=== PATIENT | male | born 1970 | race Caucasian/White ===

== ENCOUNTER 2016-08-06 17:38 | Emergency (ER) | payer OTHER ==
[2016-08-06 17:55] VITALS: BP 129/79
[2016-08-06] MEDS ORDERED: HYDROCODONE/ACETAMINOPHEN 5-325 MG 6 TAB/DSPK PO PRN (19:59)
[2016-08-06] MEDS ORDERED: IBUPROFEN 800 MG TABLET PO ONE (19:59)
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
== END 2016-08-06 20:15 | disposition home or self-care (01) ==
LOC: ER 17:38
DX: S16.1XXA Strain of muscle, fascia and tendon at neck level, initial encounter (principal); S29.012A Strain of muscle and tendon of back wall of thorax, initial encounter; M54.2 Cervicalgia; M54.89 Other dorsalgia; V43.52XA Car driver injured in collision with other type car in traffic accident, initial encounter
CPT/HCPCS: 99283

== ENCOUNTER 2017-09-12 00:28 | Emergency (ER) | payer BC, OTHER ==
[2017-09-12] MEDS ORDERED: LIDOCAINE 5% (700 MG) TRANSDERMAL ADH..PATCH TP ONE (01:42)
[2017-09-12] MEDS ORDERED: IBUPROFEN 600 MG TABLET PO ONE (01:49)
[2017-09-12] MEDS ORDERED: MORPHINE SULFATE IR 15 MG TABLET PO ONE (01:49)
[2017-09-12] MEDS ORDERED: ACETAMINOPHEN 325 MG TABLET PO ONE (01:49)
--- NOTE | 2017-09-12 02:09 | ER Document Report ---
ED General - General Chief Complaint: Shoulder Pain Stated Complaint: RIGHT ARM PAIN Time Seen by Provider: 09/12/17 01:21 Notes: Patient is a 47 year old male without chronic medical problems who presents with 3 days of progressively worsening right shoulder pain. He states the pain started after he was playing racquetball and has gotten progressively worse since that time. He is describes as a severe, throbbing, aching pain to the right shoulder with radiation of the pain down into his right forearm and hand with associated paresthesias of the forearm and hand. He denies any focal weakness or loss of sensation. He has tried tramadol and ibuprofen with moderate improvement of the pain. Any attempt at moving the shoulder be 45 of abduction significantly increases the pain. He denies any direct trauma to the area. He denies any chest pain, shortness of breath, nausea, vomiting or diaphoresis. TRAVEL OUTSIDE OF THE [place] IN LAST 30 DAYS: No - Related Data Allergies/Adverse Reactions: No Known Allergies Allergy (Unverified 08/06/16 17:53) Past Medical History - General Information source: Patient - Social History Smoking Status: Never Smoker Frequency of alcohol use: None Drug Abuse: None Lives with: Family Family History: Arthritis, CAD - father, CVA, DM, Hyperlipidemia, Hypertension Renal/ Medical History: Denies: Hx Peritoneal Dialysis Musculoskeltal Medical History: Reports Hx Arthritis, Reports Hx Musculoskeletal Deformity, Reports Hx Musculoskeletal Trauma Past Surgical History: Reports: Hx Orthopedic Surgery - carpal tunnel, Hx Umbilical Hernia - Immunizations Immunizations up to date: No Hx Diphtheria, Pertussis, Tetanus Vaccination: No Review of Systems - Review of Systems Notes: Constitutional: Negative for fever. HENT: Negative for sore throat. Eyes: Negative for visual changes. Cardiovascular: Negative for chest pain. Respiratory: Negative for shortness of breath. Gastrointestinal: Negative for abdominal pain, vomiting or diarrhea. Genitourinary: Negative for dysuria. Musculoskeletal: Positive for right shoulder pain Skin: Negative for rash. Neurological: Negative for headaches, weakness or numbness. 10 point ROS negative except as marked above and in HPI. Physical Exam - Vital signs Vitals: Temp Pulse Resp BP Pulse Ox 98.4 F 73 18 122/78 98 09/12/17 02:22 09/12/17 02:22 09/12/17 02:22 09/12/17 02:22 09/12/17 02:22 Interpretation: Normal Notes: PHYSICAL EXAMINATION: GENERAL: Appears to be moderately uncomfortable but no acute distress HEAD: Atraumatic, normocephalic. EYES: Pupils equal round and reactive to light, extraocular movements intact, sclera anicteric, conjunctiva are normal. ENT: nares patent, oropharynx clear without exudates. Moist mucous membranes. NECK: Normal range of motion, supple without lymphadenopathy LUNGS: Breath sounds clear to auscultation bilaterally and equal. No wheezes rales or rhonchi. HEART: Regular rate and rhythm without murmurs ABDOMEN: Soft, nontender, normoactive bowel sounds. No guarding, no rebound. No masses appreciated. EXTREMITIES: The patient is unable to abduct his right shoulder about 45. NEUROLOGICAL: No focal neurological deficits. Moves all extremities spontaneously and on command. PSYCH: Normal mood, normal affect. SKIN: Warm, Dry, normal turgor, no rashes or lesions noted. Course - Re-evaluation Re-evalutation: 09/12/17 02:31 Patient presents with an acute right shoulder pain likely secondary to a partial ligamentous tear with an associated inflammatory process of the joint and irritation of the underlying nerves. RMU motor and sensory distribution are fully intact. Right shoulder x-ray without any evidence of acute fracture or dislocation. Patient's clinical history is not all consistent with ACS, EKG unremarkable. The patient does also have associated muscle spasm of the right trapezius, right periscapular muscles. He has been started on anti- inflammatories, small amount of morphine as needed for pain uncontrolled by Tylenol and ibuprofen. I have recommended outpatient orthopedic follow-up if he is not having improvement of his symptoms in the next several weeks. At this time will discharge with return precautions and follow-up recommendations. Verbal discharge instructions given a the bedside and opportunity for questions given. Medication warnings reviewed. Patient is in agreement with this plan and has verbalized understanding of return precautions and the need for primary care follow-up in the next 24-72 hours. - Vital Signs Vital signs: Temp Pulse Resp BP Pulse Ox 98.4 F 73 18 122/78 98 09/12/17 02:22 09/12/17 02:22 09/12/17 02:22 09/12/17 02:22 09/12/17 02:22 - Diagnostic Test Radiology reviewed: Image reviewed, Reports reviewed Radiology results interpreted by me: 09/12/17 02:32 Right shoulder x-ray: No acute fracture or dislocation - EKG Interpretation by Me Additional EKG results interpreted by me: 09/12/17 02:32 Sinus rhythm. Rate 69. No ST elevations or depressions. QTC is 390. Discharge - Discharge Clinical Impression: Trapezius muscle spasm, Paresthesia of right upper extremity Right shoulder pain Qualifiers: Chronicity: acute Qualified Code(s): M25.511 - Pain in right shoulder Condition: Good Disposition: HOME, SELF-CARE Additional Instructions: Your x-ray does not show any acute fracture today. You likely have a ligamentous strain with associated inflammation of your shoulder joint. For your pain: Take ibuprofen 600 mg and acetaminophen 1000 mg every 6 hours together as needed for pain. If this does not control your pain you may take 15 mg of oral morphine every 4 hours as needed. Please be very careful about using the oral morphine and only use this for severe pain. Continue to apply ice to the area is much your able. Please follow-up with your primary care physician if you do not have improving your symptoms in the next 1-2 weeks. Please return immediately if you develop weakness, numbness, spreading redness from the area, or any other symptoms that are concerning to you. Prescriptions: Morphine Sulfate [Morphine Ir 15 mg Tablet] 15 mg PO Q4HP PRN #12 tablet PRN Reason:
--- NOTE | 2017-09-12 02:28 | RADIOLOGY REPORT (SQ) ---
EXAM DESCRIPTION: Right shoulder, 2 or more views CLINICAL HISTORY: pain, limited rom COMPARISON: None. FINDINGS: 3 views of the right shoulder. No acute fracture or dislocation. Normal osseous mineralization. No acute abnormalities of the visualized right hemithorax. IMPRESSION: No acute fracture or dislocation.
[2017-09-12] MEDS ORDERED: ONDANSETRON ODT 4 MG TAB (6 TAB/ER DISP) PO PRN (02:33)
[2017-09-12 03:12] VITALS: BP 122/81
--- NOTE | 2017-09-12 07:24 | EKG REPORT ---
SEVERITY:- NORMAL ECG - SINUS RHYTHM : Confirmed by: Josie Nogueira MD 12-Sep-2017 07:23:44
== END 2017-09-12 03:05 | disposition home or self-care (01) ==
LOC: ER 00:28
DX: M25.511 Pain in right shoulder (principal); M62.830 Muscle spasm of back; R20.0 Anesthesia of skin; M79.601 Pain in right arm; X50.3XXA Overexertion from repetitive movements, initial encounter; Y93.73 Activity, racquet and hand sports
CPT/HCPCS: 93005; 93010; 99284

== ENCOUNTER 2019-01-26 18:03 | Emergency (ER) | payer SELFPAY ==
[~2019-01-26 18:03] MED LIST: ASPIRIN 81 MG TABLET, CHEWABLE ONE; CLOPIDOGREL BISULFATE 300 MG TABLET ONE; NITROGLYCERIN 0.4 MG/TAB 25 TAB/BOTTLE ONE; TENECTEPLASE INJ 50 MG KIT IV ONE
[2019-01-26] MEDS: NITROGLYCERIN 0.4 MG/TAB 25 TAB/BOTTLE SL PRN ×3 (18:17→18:27)
[2019-01-26] MEDS ORDERED: NITROGLYCERIN/D5W 50 MG/250 ML RTUINJ IV ONE (18:23)
[2019-01-26] MEDS ORDERED: HEPARIN SOD (PORCINE) 1,000 UNIT/ML 10 ML VIAL ONE (18:29)
--- NOTE | 2019-01-26 18:39 | ER Document Report ---
ED Cardiac - General Chief Complaint: Chest Pain Stated Complaint: CHEST PAIN Time Seen by Provider: 01/26/19 18:36 Primary Care Provider: CAYLA NICHOLE MD [Primary Care Provider] - Follow up as needed Notes: Patient is complaining of anterior chest pain that started about an hour ago while he was laying down resting. Patient says he is been having some pressure in the front of his chest for the past few days, but this pain this evening is much more severe. He is nauseated but no other symptoms. No shortness of breath. Patient arrived in the emergency department and initial EKG and triage shows an inferior wall STEMI with some minor reciprocal changes of an AZ in V2. Patient has a history of hypertension but not currently taking any medications. Patient has a history of NIDDM, but not taking any medications either. TRAVEL OUTSIDE OF THE [place] IN LAST 30 DAYS: No - Related Data Allergies/Adverse Reactions: No Known Allergies Allergy (Unverified 08/06/16 17:53) Past Medical History - Social History Smoking Status: Unknown if Ever Smoked Family History: Arthritis, CAD - father, CVA, DM, Hyperlipidemia, Hypertension - Past Medical History Cardiac Medical History: Reports: Hx Hypertension Denies: Hx Coronary Artery Disease Endocrine Medical History: Reports: Hx Diabetes Mellitus Type 2 Musculoskeletal Medical History: Reports Hx Arthritis, Reports Hx Musculoskeletal Deformity, Reports Hx Musculoskeletal Trauma Past Surgical History: Reports: Hx Orthopedic Surgery - carpal tunnel, Hx Umbilical Hernia - Immunizations Immunizations up to date: No Hx Diphtheria, Pertussis, Tetanus Vaccination: No Review of Systems - Review of Systems Notes: REVIEW OF SYSTEMS: CONSTITUTIONAL : Denies fever. EENT: Denies eye, ear, nose or mouth or throat pain or other symptoms. CARDIOVASCULAR: See HPI RESPIRATORY: Denies cough, chest congestion, or shortness of breath. GASTROINTESTINAL: Denies abdominal pain or vomiting, or diarrhea. Some nausea. GENITOURINARY: Denies difficulty or painful urinating, urinary frequency, blood in urine. MUSCULOSKELETAL: Denies back or neck pain. Denies joint pain or swelling. SKIN: Denies rash or skin lesions. NEUROLOGICAL: Denies LOC or altered mental status. Denies headache. Denies sensory loss or motor deficits. ALL OTHER SYSTEMS REVIEWED AND NEGATIVE. Physical Exam - Vital signs Vitals: Resp Pulse Ox 12 100 01/26/19 18:20 01/26/19 18:20 Interpretation: Normal, Hypertensive - Mild Notes: PHYSICAL EXAMINATION: GENERAL: Well-appearing, in no acute distress. Anxious ambulatory. HEAD: Atraumatic, normocephalic. EYES: Pupils equal round and reactive to light, extraocular movements intact. ENT: oropharynx clear without exudates. Moist mucous membranes. NECK: Normal range of motion, supple. LUNGS: Breath sounds clear and equal bilaterally. HEART: Regular rate and rhythm without murmurs. ABDOMEN: Soft, nontender. No guarding or rebound. No masses. BACK: No tenderness throughout entire back. EXTREMITIES: Normal range of motion without pain. Negative Homans bilaterally. NEUROLOGICAL: Normal speech, normal gait SKIN: Warm, dry, no rashes. Course - Re-evaluation Re-evalutation: 01/26/19 18:58 Patient's initial EKG showed a STEMI of the inferior heart. He was placed in a bed in trauma bay and IV established. Contacted [facility], , who accepted the patient in transfer. Patient received aspirin 325 p.o., Plavix 300 mg p.o., and heparin bolus. After that, patient received TPA per protocol. Patient had nitroglycerin sublingually and drip ordered. Patient will be transported to [facility] by helicopter. There was mechanical error with the first helicopter and a second, back-up vehicle is being launched. - Vital Signs Vital signs: Temp Pulse Resp BP Pulse Ox 97.8 F 82 15 159/94 H 100 01/26/19 19:11 01/26/19 19:11 01/26/19 19:17 01/26/19 19:17 01/26/19 19:17 - Laboratory Result Diagrams: 01/26/19 18:18 01/26/19 18:18 Laboratory results interpreted by me: 01/26/19 01/26/19 18:18 18:18 RBC 5.84 H Sodium 136.6 L Glucose 383 H - Diagnostic Test Radiology results interpreted by me: 01/27/19 14:28 CXR normal - EKG Interpretation by Me EKG shows normal: Sinus rhythm Rate: Normal Rhythm: NSR When compared to previous EKG there are: Previous EKG unavailable Additional EKG results interpreted by me: 01/27/19 14:29 EKG shows inferior STEMI Critical Care Note - Critical Care Note Total time excluding time spent on procedures (mins): 40 Discharge - Discharge Clinical Impression: Acute AZ, inferior wall Condition: Serious Disposition: [facility] Referrals: CAYLA NICHOLE MD [Primary Care Provider] - Follow up as needed
--- NOTE | 2019-01-26 18:44 | RADIOLOGY REPORT (SQ) ---
EXAM DESCRIPTION: CHEST SINGLE VIEW COMPLETED DATE/TIME: 01/26/2019 6:32 pm REASON FOR STUDY: TROUBLE BREATHING COMPARISON: 03/16/2016 EXAM PARAMETERS: NUMBER OF VIEWS: One view. TECHNIQUE: Single frontal radiographic view of the chest acquired. RADIATION DOSE: NA LIMITATIONS: None. FINDINGS: LUNGS AND PLEURA: No opacities, masses or pneumothorax. No pleural effusion. MEDIASTINUM AND HILAR STRUCTURES: No masses. Contour normal. HEART AND VASCULAR STRUCTURES: Heart normal in size. Normal vasculature. BONES: No acute findings. HARDWARE: None in the chest. OTHER: No other significant finding. IMPRESSION: NO ACUTE RADIOGRAPHIC FINDING IN THE CHEST. TECHNICAL DOCUMENTATION: JOB ID: [id number]- All Rights Reserved Reading location - IP/workstation name: [email or web address]
[2019-01-26] MEDS ORDERED: MORPHINE SULFATE 10 MG/ML INJ IV ONE ×2 (18:51)
[2019-01-26] MEDS ORDERED: ONDANSETRON HCL INJ/PF 4 MG/2 ML SDV IV ONE ×2 (18:52)
[2019-01-26] MEDS ORDERED: MORPHINE SULFATE 10 MG/ML INJ ONE (18:52)
[2019-01-26] MEDS ORDERED: HEPARIN SOD (PORCINE) 1,000 UNIT/ML 10 ML VIAL IV ONE (19:00)
[2019-01-26] MEDS ORDERED: ASPIRIN 81 MG TABLET, CHEWABLE PO ONE (19:01)
[2019-01-26] MEDS ORDERED: NORMAL SALINE 1000 ML 1,000 ML IV ONE (19:02)
[2019-01-26] MEDS ORDERED: TENECTEPLASE INJ 50 MG KIT IV ONE (19:03)
[2019-01-26] MEDS ORDERED: NITROGLYCERIN/D5W 50 MG/250 ML RTUINJ IV PRN (19:03)
[2019-01-26] MEDS ORDERED: CLOPIDOGREL BISULFATE 75 MG TABLET PO ONE (19:04)
[2019-01-26] MEDS ORDERED: CLOPIDOGREL BISULFATE 300 MG TABLET PO ONE (19:13)
[2019-01-26 19:18] LABS: HEMATOCRIT 47.6 % (37.9-51.0); HEMOGLOBIN 16.2 g/dL (13.5-17.0); MEAN CORPUSCULAR HEMOGLOBIN 27.7 pg (27.0-33.4); MEAN CORPUSCULAR VOLUME 82 fl (80-97); PLATELET COUNT 261 10^3/uL (150-450); RED BLOOD COUNT 5.84 10^6/uL (4.35-5.55); WHITE BLOOD COUNT 10.1 10^3/uL (4.0-10.5)
[2019-01-26 19:20] LABS: INTERNATIONAL RATION (INR) 0.88; PROTHROMBIN TIME 11.9 SEC (11.4-15.4)
[2019-01-26 19:21] VITALS: BP 159/94
[2019-01-26 19:21] LABS: PARTIAL THROMBOPLASTIN TIME 25.1 SEC (23.5-35.8)
[2019-01-26 19:33] LABS: ANION GAP 12 (5-19); BLOOD UREA NITROGEN 16 mg/dL (7-20); CALCIUM 9.7 mg/dL (8.4-10.2); CARBON DIOXIDE 25 mmol/L (22-30); CHLORIDE 100 mmol/L (98-107); CREATINE KINASE 140 U/L (55-170); GLUCOSE 383 mg/dL (75-110); POTASSIUM 3.9 mmol/L (3.6-5.0)
[2019-01-26 19:51] LABS: CREATINE KINASE MB 2.12 ng/mL (<4.55)
[2019-01-26 19:56] LABS: TROPONIN I < 0.012 ng/mL
--- NOTE | 2019-01-28 00:29 | EKG REPORT ---
SEVERITY:- ABNORMAL ECG - SINUS RHYTHM INFERIOR INJURY, PROBABLE EARLY ACUTE INFARCT : Confirmed by: Suzanne Blas 28-Jan-2019 00:28:26
--- NOTE | 2019-01-28 00:29 | EKG REPORT ---
SEVERITY:- ABNORMAL ECG - SINUS RHYTHM ATRIAL PREMATURE COMPLEX INFERIOR INJURY, PROBABLE EARLY ACUTE INFARCT CONSIDER ANTEROSEPTAL INFARCT : Confirmed by: Suzanne Blas 28-Jan-2019 00:28:37
--- NOTE | 2019-01-29 16:09 | EKG REPORT ---
SEVERITY:- ABNORMAL ECG - ATRIAL FIBRILLATION, V-RATE 59-79 INFERIOR INJURY, PROBABLE EARLY ACUTE INFARCT : Confirmed on behalf of: Suzanne Blas 29-Jan-2019 16:08:47
== END 2019-01-26 19:23 | disposition short-term general hospital (02) ==
LOC: ER 18:03
DX: I21.19 ST elevation (STEMI) myocardial infarction involving other coronary artery of inferior wall (principal); I10 Essential (primary) hypertension; E11.9 Type 2 diabetes mellitus without complications; R07.89 Other chest pain; R11.0 Nausea; Z82.49 Family history of ischemic heart disease and other diseases of the circulatory system
CPT/HCPCS: 93005 ×2; 99291; 96375; 96365; 36415; 82553; 82550; 85027; 85610; 85730; 80048; 84484; 71045; 93010 ×2; J3101; J3490 ×2; J1644; J2270; J2405; J7030

== ENCOUNTER 2019-09-14 04:32 | Emergency (ER) | payer SELFPAY ==
[2019-09-14 05:10] LABS: ABSOLUTE BASOPHILS # (AUTO) 0.1 10^3/uL (0.0-0.2); ABSOLUTE EOSINOPHILS # (AUTO) 0.4 10^3/uL (0.0-0.6); ABSOLUTE LYMPHOCYTES (AUTO) 2.2 10^3/uL (0.5-4.7); ABSOLUTE MONOCYTES (AUTO) 1.2 10^3/uL (0.1-1.4); ABSOLUTE NEUT (AUTO) 7.4 10^3/uL (1.7-8.2); BASOPHILS % (AUTO) 0.8 % (0-2); EOSINOPHILS % (AUTO) 3.2 % (0-6); HEMATOCRIT 44.7 % (37.9-51.0); HEMOGLOBIN 15.2 g/dL (13.5-17.0); LYMPHOCYTES % (AUTO) 19.7 % (13-45); MEAN CORPUSCULAR HEMOGLOBIN 28.5 pg (27.0-33.4); MEAN CORPUSCULAR VOLUME 84 fl (80-97); MONOCYTES % (AUTO) 10.5 % (3-13); PLATELET COUNT 233 10^3/uL (150-450); RED BLOOD COUNT 5.32 10^6/uL (4.35-5.55); RED CELL DISTRIBUTION WIDTH 12.9 % (11.5-14.0); SEGMENTED NEUTROPHILS % (AUTO) 65.8 % (42-78); TOTAL CELLS COUNTED % (AUTO) 100 %; WHITE BLOOD COUNT 11.2 10^3/uL (4.0-10.5)
[2019-09-14 05:27] LABS: ALBUMIN 4.6 g/dL (3.5-5.0); ALKALINE PHOSPHATASE 51 U/L (38-126); ANION GAP 7 (5-19); ASPARTATE AMINO TRANSFERASE 20 U/L (17-59); BILIRUBIN,TOTAL 0.7 mg/dL (0.2-1.3); BLOOD UREA NITROGEN 21 mg/dL (7-20); CALCIUM 9.6 mg/dL (8.4-10.2); CARBON DIOXIDE 27 mmol/L (22-30); CHLORIDE 103 mmol/L (98-107); GLUCOSE 174 mg/dL (75-110); POTASSIUM 4.7 mmol/L (3.6-5.0); TOTAL PROTEIN 7.3 g/dL (6.3-8.2)
[2019-09-14 05:30] LABS: APPEARANCE,URINE CLEAR; BILIRUBIN,URINE NEGATIVE (NEGATIVE); COLOR,URINE YELLOW; GLUCOSE, URINE NEGATIVE (NEGATIVE); KETONES,URINE NEGATIVE (NEGATIVE); LEUKOCYTE ESTERASE,URINE NEGATIVE (NEGATIVE); NITRITE,URINE NEGATIVE (NEGATIVE); PROTEIN,URINE NEGATIVE (NEGATIVE); URINE SPECIFIC GRAVITY 1.019; UROBILINOGEN,URINE NEGATIVE mg/dL (<2.0)
[2019-09-14] MEDS ORDERED: NORMAL SALINE 1000 ML 1,000 ML IV ONE (07:08)
--- NOTE | 2019-09-14 08:25 | RADIOLOGY REPORT (SQ) ---
EXAM DESCRIPTION: CT ABD/PELVIS NO ORAL OR IV IMAGES COMPLETED DATE/TIME: 09/14/2019 7:47 am REASON FOR STUDY: left flank pain/microscopic hematuria/hx of stones COMPARISON: None. TECHNIQUE: CT scan of the abdomen and pelvis performed without intravenous or oral contrast. Images reviewed with lung, soft tissue, and bone windows. Reconstructed coronal and sagittal MPR images revi ewed. All images stored on PACS. All CT scanners at this facility use dose modulation, iterative reconstruction, and/or weight based d osing when appropriate to reduce radiation dose to as low as reasonably achievable (ALARA). [facility]: Dose Right [facility]: CareDose [facility]: Dose Right [facility]: Teradose 4D [facility]: [employer] RADIATION DOSE: CT Rad equipment meets quality standard of care and radiation dose reduction techniq ues were employed. CTDIvol: 15.5 mGy. DLP: 918 mGy-cm. LIMITATIONS: None. FINDINGS: LOWER CHEST: Mild atherosclerotic calcification of the coronary arteries. NON-CONTRASTED LIVER, SPLEEN, ADRENALS: Evaluation is limited due to the absence of intravenous contr ast. There is no evidence of hepatic steatosis. The spleen is normal in size. There is no adrenal mass. PANCREAS: No acute gross abnormality of the pancreas. GALLBLADDER: No abnormality that is apparent on CT. RIGHT KIDNEY AND URETER: Evaluation is limited due to the absence of intravenous contrast. There is no hydronephrosis, nephrolithiasis, hydroureter or ureterolithiasis. LEFT KIDNEY AND URETER: Evaluation is limited due to the absence of intravenous contrast. There is a 3 mm calculus within the distal ureter (image 78 of series 3) that is associated with mild hydrouret eronephrosis. There is no other renal or ureteral calculus. AORTA AND RETROPERITONEUM: No aneurysm of the abdominal aorta. No retroperitoneal, hemorrhage or mas s. BOWEL AND PERITONEAL CAVITY: No bowel obstruction, bowel wall thickening or pericolonic/perienteric i nflammation. No mesenteric adenopathy, free intraperitoneal fluid or mesenteric/ omental inflammatio n. APPENDIX: Normal. PELVIS, BLADDER, AND ABDOMINAL WALL:No abdominal wall mass or hernia. The prostate gland is normal i n size. There is no urinary bladder calculus. BONES: No acute findings. OTHER: No other finding. IMPRESSION: 3 mm calculus within the distal left ureter (image 78 of series 3) that is associated wi th mild ipsilateral hydroureteronephrosis. COMMENT: Quality ID # [id number]: Final reports with documentation of one or more dose reduction techniques (e.g., Automated exposure control, adjustment of the mA and/or kV according to patient size, use of iterative reconstruction technique) TECHNICAL DOCUMENTATION: JOB ID: [id number] [employer]- All Rights Reserved Reading location - IP/workstation name: [email or web address]
--- NOTE | 2019-09-14 09:35 | ER Document Report ---
Entered by RD ADEN SCRIBE 09/14/19 0656 Acting as scribe for:ORAL STEPHENS MD ED General - General Chief Complaint: Possible Kidney Stone Stated Complaint: FLANK PAIN Primary Care Provider: JOSÉ MANUEL DE LA PAZ MD [Primary Care Provider] - Follow up as needed Information source: Patient Notes: This 49-year-old male presents to the emergency department with left lower abdominal pain that began 9 hours ago. Patient states that he believes he has a kidney stone. Patient said that he has had one kidney stone before and this pain is similar to the last time he had one. Patient reports that he felt lightheaded when the pain was at its worst last night. Patient denies trauma to his abdomen. Patient states that the pain comes and goes. Patient denies nausea, vomiting, throat pain, dysuria, urgency and chest pain. Patient states that at this time the pain has eased off and he feels relief. TRAVEL OUTSIDE OF THE [place] IN LAST 30 DAYS: No - Related Data Allergies/Adverse Reactions: No Known Allergies Allergy (Unverified 08/06/16 17:53) Home Medications: metformin, atorvastatin, lisinopril,plavix,asa, metoprolol,tresiba Past Medical History - General Information source: Patient - Social History Smoking Status: Never Smoker Cigarette use (# per day): No Chew tobacco use (# tins/day): No Frequency of alcohol use: None Drug Abuse: None Lives with: Family Family History: Arthritis, CAD - father, CVA, DM, Hyperlipidemia, Hypertension Patient has homicidal ideation: No - Past Medical History Cardiac Medical History: Reports: Hx Coronary Artery Disease, Hx Heart Attack, Hx Hypercholesterolemia, Hx Hypertension Endocrine Medical History: Reports: Hx Diabetes Mellitus Type 2 Musculoskeletal Medical History: Reports Hx Arthritis, Reports Hx Musculoskeletal Deformity, Reports Hx Musculoskeletal Trauma Past Surgical History: Reports: Hx Abdominal Surgery, Hx Cardiac Surgery, Hx Orthopedic Surgery - carpal tunnel, Hx Umbilical Hernia - Immunizations Immunizations up to date: No Hx Diphtheria, Pertussis, Tetanus Vaccination: No Review of Systems - Review of Systems Constitutional: See HPI. denies: Fever EENT: No symptoms reported Cardiovascular: See HPI, Lightheaded. denies: Chest pain Respiratory: No symptoms reported Gastrointestinal: See HPI, Abdominal pain. denies: Nausea, Vomiting Genitourinary: See HPI. denies: Dysuria, Pain, Urgency Male Genitourinary: No symptoms reported Musculoskeletal: No symptoms reported Skin: No symptoms reported Hematologic/Lymphatic: No symptoms reported Neurological/Psychological: No symptoms reported -: Yes All other systems reviewed and negative Physical Exam - Vital signs Vitals: Temp Pulse Resp BP Pulse Ox 98.2 F 66 16 153/93 H 100 09/14/19 04:38 09/14/19 04:38 09/14/19 04:38 09/14/19 04:38 09/14/19 04:38 - Notes Notes: Physical Exam: General: Alert, appears well. HEENT: Normocephalic. Atraumatic. PERRL. Extraocular movements intact. Oropharynx clear. Neck: Supple. Non-tender. Respiratory: No respiratory distress. Clear and equal breath sounds bilaterally. Cardiovascular: Regular rate and rhythm. Abdominal: Mild LLQ tenderness to palpation. No guarding or rebound. No distension. Normal Bowel Sounds. Back: No gross abnormalities. Extremities: Moves all four extremities. Upper extremities: Normal inspection. Normal ROM. Lower extremities: Normal inspection. No edema. Normal ROM. Neurological: Normal cognition. AAOx4. Normal speech. Psychological: Normal affect. Normal Mood. Skin: Warm. Dry. Normal color. Course - Re-evaluation Re-evalutation: 09/14/19 09:1Patient resting comfortably abdominal pain-free not showing any signs of distress. - Vital Signs Vital signs: Temp Pulse Resp BP Pulse Ox 98.2 F 66 16 153/93 H 100 09/14/19 04:39 09/14/19 04:38 09/14/19 04:38 09/14/19 04:38 09/14/19 04:38 - Laboratory Result Diagrams: 09/14/19 04:55 09/14/19 04:55 Laboratory results interpreted by me: 09/14/19 09/14/19 09/14/19 04:55 04:55 04:55 WBC 11.2 H BUN 21 H Glucose 174 H Urine Blood LARGE H 09/14/19 09:16 Hematuria noted on urine analysis. - Diagnostic Test Radiology reviewed: Image reviewed, Reports reviewed Radiology results interpreted by me: 09/14/19 09:16 CT scan of abdomen and pelvis noncontrast shows a 3 mm stone mid to distal ureter left ureter with some mild hydro-nephrosis. No other acute process noted. Discharge - Discharge Clinical Impression: Nephrolithiasis, Ureterolithiasis, Hematuria, Abdominal pain, Hydronephrosis, left Condition: Stable Disposition: HOME, SELF-CARE Instructions: Abdominal Pain ([facility]), Antinausea Medication ([facility]), Oral Narcotic Medication ([facility]) Additional Instructions: Kidney Stone You are passing or have passed a kidney stone. These stones are usually due to increased calcium or uric acid concentrations in your urine. Stones within the kidney itself are not painful. The pain occurs as the stone leaves the kidney to pass down the long tube, called the ureter, leading to the bladder. If the stone is small, it will usually pass by itself. Most patients can pass the stone at home. You will usually receive medications for pain, nausea or vomiting, and sometimes a medication to assist in passing the kidney stone. However, if the pain is very severe or if vomiting prevents you from taking oral pain medications, you may need to return for further treatment. Drink three or four quarts of fluids per day. You will be given pain medication (if needed) and urine strainers. Strain all your urine to see if the stone passes. If your doctor has asked you to bring the stone in for analysis, return with the stone once it has passed. Return if pain or vomiting become severe, if you develop a high fever, if you are unable to pass your urine, or if other unusual symptoms occur. Follow-up with Dr. David Barragan urologist to determine if you have completely passed the kidney stone. Prescriptions: Tamsulosin HCl [Flomax 0.4 mg Cap.sr] 0.4 mg PO DAILY #7 cap.sr.24h Ibuprofen [Motrin 800 mg Tablet] 800 mg PO Q8H PRN #14 tab PRN Reason: pain Hydrocodone/Acetaminophen [[place] 10-325 mg Tablet] 1 tab PO TID PRN #5 tablet PRN Reason: prn severe pain Ondansetron [Zofran Odt 4 mg Tablet] 1 - 2 tab PO Q4H PRN #15 tab.rapdis PRN Reason: For Nausea/Vomiting Referrals: JOSÉ MANUEL DE LA PAZ MD [Primary Care Provider] - Follow up as needed DAVID BARRAGAN MD [NO LOCAL MD] - Follow up in 3-5 days I personally performed the services described in the documentation, reviewed and edited the documentation which was dictated to the scribe in my presence, and it accurately records my words and actions.
[2019-09-14 10:30] VITALS: BP 129/79
== END 2019-09-14 10:32 | disposition home or self-care (01) ==
LOC: ER 04:32
DX: R10.32 Left lower quadrant pain (principal); R42 Dizziness and giddiness; Z87.442 Personal history of urinary calculi; N20.0 Calculus of kidney; N20.1 Calculus of ureter; N13.30 Unspecified hydronephrosis; R31.9 Hematuria, unspecified; I25.10 Atherosclerotic heart disease of native coronary artery without angina pectoris; E78.00 Pure hypercholesterolemia, unspecified; E11.9 Type 2 diabetes mellitus without complications; I10 Essential (primary) hypertension; Z79.4 Long term (current) use of insulin; Z90.2 Acquired absence of lung [part of]; Z79.82 Long term (current) use of aspirin; I25.2 Old myocardial infarction
CPT/HCPCS: 99284; 96360; 96361; 36415; 83690; 85025; 80053; 81001; 74176; J7030

== ENCOUNTER 2019-11-04 22:11 | Emergency (ER) | payer BC ==
[2019-11-04] MEDS ORDERED: ASPIRIN 81 MG TABLET, CHEWABLE PO ONE (22:48)
[2019-11-04] MEDS ORDERED: FAMOTIDINE 20 MG TABLET PO ONE (22:49)
--- NOTE | 2019-11-04 22:51 | ER Document Report ---
ED Cardiac - General Chief Complaint: Chest Pain Stated Complaint: CHEST PAIN, SHORTNESS OF BREATH, HEADACHE, NAUSEA Time Seen by Provider: 11/04/19 22:37 Notes: Patient is a 49-year-old male that comes emergency department for chief complaint of 4 days of intermittent chest discomfort. He states the pain is in the center of his chest, he states that he does get waves of nausea and he has had a lot of belching over the past 2 days as well. He denies shortness of breath, dizziness, new cough (he states he has had a mild persistent cough for a few months now), denies fever or sick contacts. Patient had an CA in January 2019 and was transferred to [facility] where he had 3 stents placed. He is currently on Plavix, he is treated for type 2 diabetes, hypertension, hyperlipidemia. He denies smoking, alcohol, recreational drugs. He denies any current complaints including denying any current chest pain. TRAVEL OUTSIDE OF THE [place] IN LAST 30 DAYS: No - Related Data Allergies/Adverse Reactions: No Known Allergies Allergy (Unverified 08/06/16 17:53) Past Medical History - General Information source: Patient - Social History Smoking Status: Former Smoker Frequency of alcohol use: None Drug Abuse: None Lives with: Family Family History: Arthritis, CAD - father, CVA, DM, Hyperlipidemia, Hypertension - Past Medical History Cardiac Medical History: Reports: Hx Coronary Artery Disease, Hx Heart Attack, Hx Hypercholesterolemia, Hx Hypertension Endocrine Medical History: Reports: Hx Diabetes Mellitus Type 2 Renal/ Medical History: Denies: Hx Peritoneal Dialysis Musculoskeletal Medical History: Reports Hx Arthritis, Reports Hx Musculoskeletal Deformity, Reports Hx Musculoskeletal Trauma Past Surgical History: Reports: Hx Abdominal Surgery, Hx Cardiac Surgery, Hx Orthopedic Surgery - carpal tunnel, Hx Umbilical Hernia - Immunizations Immunizations up to date: No Hx Diphtheria, Pertussis, Tetanus Vaccination: No Review of Systems - Review of Systems Constitutional: No symptoms reported EENT: No symptoms reported Cardiovascular: See HPI Respiratory: No symptoms reported Gastrointestinal: See HPI Genitourinary: No symptoms reported Male Genitourinary: No symptoms reported Musculoskeletal: No symptoms reported Skin: No symptoms reported Hematologic/Lymphatic: No symptoms reported Neurological/Psychological: No symptoms reported Physical Exam - Vital signs Vitals: Temp Pulse Resp BP Pulse Ox 97.8 F 80 20 138/83 H 100 11/04/19 22:28 11/04/19 22:28 11/04/19 22:28 11/04/19 22:28 11/04/19 22:28 - Notes Notes: GENERAL: Alert, interacts well. No acute distress. HEAD: Normocephalic, atraumatic. EYES: Pupils equal, round, and reactive to light. Extraocular movements intact. ENT: Oral mucosa moist, tongue midline. Oropharynx unremarkable. Airway patent. LUNGS: Clear to auscultation bilaterally, no wheezes, rales, or rhonchi. No respiratory distress. Non-tender chest wall. HEART: Regular rate and rhythm. No murmur ABDOMEN: There is minimal generalized upper abdominal tenderness, nonspecific, no guarding, unremarkable otherwise GENITOURINARY: Deferred EXTREMITIES: Moves all 4 extremities spontaneously. No edema, normal radial and dorsalis pedis pulses bilaterally. No cyanosis. BACK: no cervical, thoracic, lumbar midline tenderness. No saddle anesthesia, no rmal distal neurovascular exam. Moves all extremities in full range of motion. NEUROLOGICAL: Alert and oriented x3. Normal speech. Cranial nerves II through XII grossly intact. Strength 5/5 in all extremities. PSYCH: Normal affect, normal mood. SKIN: Warm, dry, normal turgor. No rashes or lesions noted. Course - Re-evaluation Re-evalutation: Patient with atypical chest pain going on for several days with increased belching and change in diet including sodas. Most likely gastrointestinal however because of his concerning history for work-up was performed. EKG unremarkable, chemistry unremarkable, troponin is not elevated, only very mild hyperglycemia. Chest x-ray unremarkable. Troponin cycled again and negative. After the aspirin I gave patient famotidine, after this patient reports to me that he had several episodes where he belched and passed flatus, after this his symptoms completely resolved. Patient is requesting to leave. However based on patient's history including previous CA and stents along with multiple other comorbidities I recommend admission to the hospital. Patient states that he would prefer to be discharged but he will call his patent prosecution paralegal in the morning. Because of his atypical and resolved symptoms, and because he states he will follow-up within 48 hours with his patent prosecution paralegal patient was discharged with return precautions. Patient states understanding and agreement with plan, has no symptoms at time of discharge. - Vital Signs Vital signs: Temp Pulse Resp BP Pulse Ox 98.7 F 69 16 125/66 98 11/05/19 04:13 11/05/19 04:13 11/05/19 04:13 11/05/19 04:13 11/05/19 04:13 - Laboratory Result Diagrams: 11/04/19 22:50 11/04/19 22:50 Laboratory results interpreted by me: 11/04/19 22:50 Sodium 136.8 L BUN 21 H Glucose 172 H - EKG Interpretation by Me Additional EKG results interpreted by me: EKG shows sinus rhythm at a rate of 73, QTC of 415, normal axis. There are inferior Q waves and T wave inversions, however this is the location of his previous CA which was clearly seen on his previous EKG last year. Discharge - Discharge Clinical Impression: Chest pain Qualifiers: Chest pain type: unspecified Qualified Code(s): R07.9 - Chest pain, unspecified Condition: Stable Disposition: HOME, SELF-CARE Additional Instructions: The cause of your chest pain is uncertain at this time. Because of your belching and improvement after doing this increasingly along with your increased sodas recently there could be a gastrointestinal component. I recommend [id number] Pepcid, stop the sodas. Because of your chest pain and history please call your patent prosecution paralegal tomorrow to establish very close follow-up for additional management. Return if you worsen including returned pain, difficulty breathing, passing out, or any other concerning or worsening symptoms.
[2019-11-04 23:13] LABS: ABSOLUTE BASOPHILS # (AUTO) 0.1 10^3/uL (0.0-0.2); ABSOLUTE EOSINOPHILS # (AUTO) 0.6 10^3/uL (0.0-0.6); ABSOLUTE LYMPHOCYTES (AUTO) 2.5 10^3/uL (0.5-4.7); ABSOLUTE NEUT (AUTO) 6.2 10^3/uL (1.7-8.2); BASOPHILS % (AUTO) 0.7 % (0-2); EOSINOPHILS % (AUTO) 5.8 % (0-6); HEMATOCRIT 42.3 % (37.9-51.0); HEMOGLOBIN 14.6 g/dL (13.5-17.0); LYMPHOCYTES % (AUTO) 24.2 % (13-45); MEAN CORPUSCULAR HEMOGLOBIN 28.9 pg (27.0-33.4); MEAN CORPUSCULAR HGB CONC 34.6 g/dL (32.0-36.0); MEAN CORPUSCULAR VOLUME 84 fl (80-97); MONOCYTES % (AUTO) 9.9 % (3-13); PLATELET COUNT 226 10^3/uL (150-450); RED BLOOD COUNT 5.05 10^6/uL (4.35-5.55); SEGMENTED NEUTROPHILS % (AUTO) 59.4 % (42-78); TOTAL CELLS COUNTED % (AUTO) 100 %; WHITE BLOOD COUNT 10.5 10^3/uL (4.0-10.5)
--- NOTE | 2019-11-04 23:17 | RADIOLOGY REPORT (SQ) ---
EXAM DESCRIPTION: X-ray, single view of the chest CLINICAL HISTORY: 49 years Male, chest pain COMPARISON: Single view of the chest January 26, 2019 FINDINGS: Lungs: Lungs are clear. No pneumonia or edema. No pneumothorax or pleural effusion. Mediastinum: Cardiac and mediastinal silhouette are normal. Bones: Osseous structures are normal. IMPRESSION: No acute process. No significant interval change.
[2019-11-04 23:36] LABS: ALBUMIN 4.5 g/dL (3.5-5.0); ALKALINE PHOSPHATASE 63 U/L (38-126); ANION GAP 8 (5-19); ASPARTATE AMINO TRANSFERASE 22 U/L (17-59); BILIRUBIN,TOTAL 0.4 mg/dL (0.2-1.3); BLOOD UREA NITROGEN 21 mg/dL (7-20); CALCIUM 9.3 mg/dL (8.4-10.2); CARBON DIOXIDE 24 mmol/L (22-30); CHLORIDE 105 mmol/L (98-107); GLUCOSE 172 mg/dL (75-110); POTASSIUM 4.6 mmol/L (3.6-5.0); TOTAL PROTEIN 7.3 g/dL (6.3-8.2)
--- NOTE | 2019-11-05 00:37 | EKG REPORT ---
SEVERITY:- ABNORMAL ECG - SINUS RHYTHM PROBABLE INFERIOR INFARCT, AGE INDETERMINATE : Confirmed by: Suzanne Blas 05-Nov-2019 00:36:34
[2019-11-05 04:15] VITALS: BP 125/66
== END 2019-11-05 04:13 | disposition home or self-care (01) ==
LOC: ER 22:11
DX: R07.9 Chest pain, unspecified (principal); R06.02 Shortness of breath; R51 Headache; R11.0 Nausea; E11.9 Type 2 diabetes mellitus without complications; E78.00 Pure hypercholesterolemia, unspecified; I10 Essential (primary) hypertension; Z79.02 Long term (current) use of antithrombotics/antiplatelets; I25.2 Old myocardial infarction
CPT/HCPCS: 36415; 71045; 80053; 83690; 84484; 85025; 93005; 93010; 99285